=== PATIENT | male | born 1980 | race Caucasian/White ===

== ENCOUNTER 2024-08-12 20:31 | Emergency (ER) | payer OTHER ==
[~2024-08-12] VITALS: Ht 170.2 cm; Wt 115.0 kg
[2024-08-12 20:41] VITALS: TEMP 98.9
[2024-08-12 21:23] VITALS: BP 127/64; PULSE 106; RESP 18; O2SAT 94
== END 2024-08-12 21:37 | disposition left against medical advice (07) ==
LOC: EMS 20:35
DX: S61.210A Laceration without foreign body of right index finger without damage to nail, initial encounter (principal); Z53.21 Procedure and treatment not carried out due to patient leaving prior to being seen by health care provider; W22.8XXA Striking against or struck by other objects, initial encounter; Y93.89 Activity, other specified; Y92.89 Other specified places as the place of occurrence of the external cause; Y99.8 Other external cause status